=== PATIENT | female | born 1935 | race Caucasian/White ===

== ENCOUNTER → 2018-03-04 | Outpatient (CLI) | payer MEDICARE ==
--- NOTE | 2018-03-04 16:46 | US ---
EXAMINATION TYPE: US kidneys/renal and bladder DATE OF EXAM: 03/04/2018 COMPARISON: NONE CLINICAL HISTORY: 82-year-old female R31.1 HEMATURIA. Microscopic hematuria, UTI TECHNIQUE: Multiple sonographic images of the kidneys and bladder are obtained. FINDINGS: EXAM MEASUREMENTS: Right Kidney: 10.2 x 3.9 x 4.3 cm Left Kidney: 10.8 x 4.8 x 4.3 cm No hydronephrosis on either side. No gross abnormality of the bladder. Both ureteral jets are seen. Post Void Residual Volume: 13.7 mL IMPRESSION: 1. No hydronephrosis. 2. Residual bladder volume after voiding (14 mL) falls within acceptable limits.
== END ==
LOC: RADUSWWP 14:59
PROVIDERS: ATTEND Internal Medicine
DX: R31.1 Benign essential microscopic hematuria (principal)
CPT/HCPCS: 76770

== ENCOUNTER → 2019-01-27 | Outpatient (CLI) | payer MEDICARE ==
[2019-01-27 13:32] LABS: HCT 40.4 % (34.0-46.0); HGB 13.7 gm/dL (11.4-16.0); MCH 32.3 pg (25.0-35.0); MCHC 33.9 g/dL (31.0-37.0); MCV 95.3 fL (80.0-100.0); Mean Platelet Volume 8.2; Platelet Count 233 k/uL (150-450); RBC 4.24 m/uL (3.80-5.40); RDW 13.5 % (11.5-15.5); WBC 7.5 k/uL (3.8-10.6)
[2019-01-27 13:45] LABS: Potassium 4.1 mmol/L (3.5-5.1)
== END ==
LOC: LABPAT 12:20
PROVIDERS: ATTEND Internal Medicine Clinical Cardiac Electrophysiology
DX: Z01.812 Encounter for preprocedural laboratory examination (principal); I45.2 Bifascicular block; E78.5 Hyperlipidemia, unspecified; R00.1 Bradycardia, unspecified
CPT/HCPCS: 36415; 80051; 82565; 82947; 84520; 85027

== ENCOUNTER 2019-02-04 08:32 | Day surgery (SDC) | payer MEDICARE ==
[~2019-02-04 08:32] MED LIST: ceFAZolin 1,000 MG in SODIUM CHLORIDE 0.9% IRRIGATIO 250 ML IRRIGATION ONE; ceFAZolin IN SWFI 2 GM/20 ML SYRINGE IVP ONE
[2019-02-04] MEDS ORDERED: SODIUM CHLORIDE 0.9% 1,000 ML IV ONE (09:27)
[2019-02-04] MEDS ORDERED: PROPOFOL 10 MG/ML 20 ML VIAL IV ONE (10:41)
[2019-02-04] MEDS ORDERED: fentaNYL (PF) 50 MCG/ML 2 ML AMP ONE (10:41)
[2019-02-04] MEDS ORDERED: MIDAZOLAM 2 MG/2 ML VIAL ONE (10:41)
[2019-02-04] MEDS ORDERED: LIDOCAINE 1% INJ 10MG/ML (20 ML MDV) ONE ×2 (10:59→11:22)
[2019-02-04] MEDS ORDERED: LIDOCAINE 1% INJ 10MG/ML (20 ML MDV) SQ ONE ×2 (11:13)
[2019-02-04] MEDS ORDERED: ACETAMINOPHEN TAB 325 MG TAB PO PRN (12:50)
[2019-02-04] MEDS ORDERED: ACETAMINOPHEN IV (For NPO) 1,000 MG in EMPTY BAG 1 BAG IVPB ONE (12:50)
[2019-02-04] MEDS: HYDROcodone/APAP 5-325MG 1 EACH TAB PO PRN (15:17)
[2019-02-04] MEDS: amLODIPine 2.5 MG TAB PO SCH (15:17)
[2019-02-04] MEDS: LACTATED RINGERS 1,000 ML IV SCH (15:19)
[2019-02-04] MEDS: SODIUM CHLORIDE 0.9% 1,000 ML IV SCH (15:20)
[2019-02-04 15:31] VITALS: BMI 24.8
[2019-02-04 15:54] LABS: Cholesterol 130 mg/dL (<200); HDL Cholesterol 65 mg/dL (40-60); LDL Cholesterol,Calculated 52 mg/dL (0-99); Triglycerides 67 mg/dL (<150)
[2019-02-04] MEDS: ceFAZolin IN SWFI 2 GM/20 ML SYRINGE IVP SCH ×2 (16:29→22:58)
--- NOTE | 2019-02-04 18:20 | LTR ---
DATE OF SERVICE: 02/04/2019 Dear Miesha: I had the pleasure of seeing Trini Longoria in electrophysiology followup. As you know, Trini, has episodes of dizzy spells and a prolonged QT interval at baseline. 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 She underwent permanent pacing with his bundle pacing in an effort to reduce or minimize RV pacing, which generally can precipitate heart failure and development of an early onset of atrial fibrillation. Therefore, she was brought in. She underwent successful implantation of this pacemaker and is doing well. She will continue to follow up with you and myself as before. Thank you for entrusting me in the care of your patient. Warm regards, Sincerely, DIOMEDES / ELISABETH: [id number] /
--- NOTE | 2019-02-04 18:20 | PCN ---
PROCEDURE NOTE HISTORY: 83-year-old female with a history of recurrent dizzy spells and documented AV block spontaneous without any triggering factors. She was brought in initially we had planned a loop monitor implantation, but this was canceled and she was brought in directly for permanent pacemaker implantation. However, she has a prolonged QT interval at baseline and also has advanced AV block intermittently and the likelihood of high RV pacing percentage close to 100% resulted in the recommendation for biventricular pacing to avoid RV pacing and avoid heart failure symptoms in the future. DESCRIPTION OF PROCEDURE: The patient is brought to the EP lab in a fasting state. Written informed consent was obtained prior to the procedure. The left shoulder area was prepped and draped as per protocol. 1% lidocaine was used for local anesthesia. A 4 cm incision was made parallel to the deltopectoral groove, about 1.5 cm medial to it. The incision was carried down to the level of the pectoralis muscle. A subfascial pocket was made. Hemostasis was assured. The left axillary vein was accessed at 3 separate points under fluoroscopy and via appropriately-sized introducer sheaths 3 leads were positioned. The atrial lead was a 53 cm tined lead, model #4574, serial number [id number]. The P waves were 3.8 mV. Pacing impedance of 737 ohms, pacing threshold of 0.3 V at 0.5 milliseconds. 10 V test negative. The RV lead was a aneta lead 58 cm in length and model #4074 Medtronic lead, serial number [id number]. This was positioned in the low RV septum/RV apex. R-waves 18.8 mV, pacing impedance 1695 ohms, pacing threshold 0.3 V at 0.5 milliseconds. 10 V test negative. The third lead was Medtronic model #3830, 69 cm in length and serial number [id number]. This was screwed in the His bundle area. Selective His bundle capture was obtained with loss of selective capture at 0.7 V at 1 millisecond. All leads secured to the underlying pectoralis fascia using 2 nonabsorbable sutures. Pocket was irrigated with antibiotic solution. Leads were connected to the generator (Medtronic Madiha [employer] model number W1TR02 serial number [id number]. Leads and generator were then placed in subfascial pocket. The wound was closed in 3 layers and dressed per protocol. RESULTS: Successful biventricular pacemaker implantation to avoid RV pacing in this elderly lady with an abnormal AV node function with intermittent advanced AV block, but baseline PA prolongation. The device was then programmed to DDD mode with a AV delay of 150 milliseconds and a RV offset of 50 milliseconds. Selective pacing was noted. The patient tolerated the procedure well without any acute complications. MMODL / IJN: [id number] /
[2019-02-05] MEDS: LACTATED RINGERS 1,000 ML IV SCH (04:36)
[2019-02-05] MEDS: SODIUM CHLORIDE 0.9% 1,000 ML IV SCH (04:36)
[2019-02-05] MEDS: ceFAZolin IN SWFI 2 GM/20 ML SYRINGE IVP SCH ×2 (05:23→10:37)
--- NOTE | 2019-02-05 07:42 | P.DS ---
Providers Attending physician: Henry Abad Primary care physician: Miesha [facility] Course: Patient is resting comfortably in bed. Yesterday blood pressure is quite elevated he started amlodipine 2.5 mg by mouth daily No chest discomfort no shortness of breath no dizziness lightheadedness Blood pressure 132/76. 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 with a baseline prolonged duration of SD interval as well as intermittent 2-1 AV block and advanced A-V block Status post biventricular pacing Anticipated RV pacing is high and therefore biventricular pacing was performed with physiologic septal pacing Hypertension Twelve-lead ECG today today shows sinus mechanism with His bundle pacing with a narrow QRS, selective His bundle pacing Suggest Continue amlodipine 2.5 mg by mouth daily Pacemaker interrogation IV antibiotics and chest x-ray If these are within normal limits she will go home today in follow-up in the device clinic within 7 days and follow-up with me in about 3-4 months Patient Condition at Discharge: Stable Plan - Discharge Summary Discharge Rx Participant: No New Discharge Prescriptions: Continue Vit A/Vit C/Vit E/Zinc/Copper [ICAPS SOFTGEL] 1 cap PO DAILY Cetirizine HCl [Zyrtec] 10 mg PO DAILY Atorvastatin [Lipitor] 40 mg PO DAILY Vitamin B Complex 1 each PO DAILY Tumeric 1 tab PO DAILY Oxybutynin Chloride [Ditropan] 5 mg PO DAILY Calcium Carbonate [Calcium] 600 mg PO DAILY Aspirin [Adult Low Dose Aspirin EC] 81 mg PO DAILY Ascorbic Acid [Vitamin C] 1,000 mg PO DAILY Discharge Medication List Ascorbic Acid [Vitamin C] 1,000 mg PO DAILY 01/30/19 [History] Aspirin [Adult Low Dose Aspirin EC] 81 mg PO DAILY 01/30/19 [History] Atorvastatin [Lipitor] 40 mg PO DAILY 01/30/19 [History] Calcium Carbonate [Calcium] 600 mg PO DAILY 01/30/19 [History] Cetirizine HCl [Zyrtec] 10 mg PO DAILY 01/30/19 [History] Oxybutynin Chloride [Ditropan] 5 mg PO DAILY 01/30/19 [History] Tumeric 1 tab PO DAILY 01/30/19 [History] Vit A/Vit C/Vit E/Zinc/Copper [ICAPS SOFTGEL] 1 cap PO DAILY 01/30/19 [History] Vitamin B Complex 1 each PO DAILY 01/30/19 [History] Follow up Appointment(s)/Referral(s): Henry Abad MD [STAFF PHYSICIAN] - 1 Week (Device follow-up within week Follow-up with Dr. Knox in 3-4 months) Activity/Diet/Wound Care/Special Instructions: PATIENT EDUCATION MATERIAL Instructions following a heart rhythm device implant. 1. Keep dressing DRY for 5 DAYS. You may cover the area with Saran or Cling Wrap, prior to a shower. 2. The dressing will be removed in the Device Clinic at [facility]. Absorbable sutures were used to close the wound. 3. Avoid raising the left arm above the shoulder level. 4 week restriction 4. Avoid arm movements, like backscratching, rubbing the head, or pulling on a cord. 4 weeks restriction 5. Gentle range of motion movements of the shoulder, closest to the incision should be performed to avoid a frozen shoulder. (Pendulum exercises of the shoulder) 6. The opposite arm may be used freely. 7. Avoid driving for 7 days. 8. Avoid activities such as golfing, swimming, weed whacking, lifting more than 10 pounds weight, bowling, gymnastics and weight training/lifting. (6 weeks restriction) 9. Activities such as wood chopping with an axe, pull-ups in the gymnasium, power lifting, arc-welding, being close to home induction cooktops will always be a problem. 10. Arm sling is only a reminder not to raise the arm above the head. You do not need to keep the arm completely immobilized. Your free to move the arm and use it and for normal activities. In case of any problems, please call [facility], Brian Polo, @ [phone], Attention: Device Clinic Device clinic follow-up in 7 days Follow-up with primary rod mill tender Dr. Knox in 2-3 months Discharge Disposition: HOME SELF-CARE
[2019-02-05] MEDS: HYDROcodone/APAP 5-325MG 1 EACH TAB PO PRN (08:14)
[2019-02-05] MEDS: amLODIPine 2.5 MG TAB PO SCH (08:14)
[2019-02-05] MEDS ORDERED: ATORVASTATIN 40 MG TAB PO SCH (09:00)
[2019-02-05] MEDS ORDERED: ASPIRIN 81 MG PO SCH (09:00)
[2019-02-05 09:08] VITALS: BP 121/60; PULSE 66; RESP 18; TEMP 98.7
--- NOTE | 2019-02-05 09:16 | XR ---
EXAMINATION TYPE: XR chest 2V DATE OF EXAM: 02/05/2019 COMPARISON: NONE HISTORY: Lead placement check TECHNIQUE: Frontal and lateral views of the chest are obtained. FINDINGS: There is a generator in the left pectoral region, there are leads in the right atrium and ventricle. No evident pneumothorax or pleural effusion. Patient is rotated. Heart size likely within normal limits. There is a tortuous dense and ectatic thoracic aorta. Surgical clips present in the up per abdomen. IMPRESSION: No evident complication status post lead placement.
== END 2019-02-05 13:00 | disposition home or self-care (01) ==
LOC: CATHEP 08:32 → 1SOBS 13:10 → CATHEP 02-05 13:00
PROVIDERS: ATTEND Internal Medicine Clinical Cardiac Electrophysiology
DX: I44.1 Atrioventricular block, second degree (principal); I10 Essential (primary) hypertension; I45.10 Unspecified right bundle-branch block; Z87.891 Personal history of nicotine dependence; Z79.82 Long term (current) use of aspirin; Z79.899 Other long term (current) drug therapy
CPT/HCPCS: 33225; 33208; 80061; 71046; C1769 ×2; C1898 ×2; C2621; J2250; J0690 ×3; J2001; J3010; J2704

== ENCOUNTER 2019-09-26 18:24 | Emergency (ER) | payer MEDICARE ==
[2019-09-26 18:32] VITALS: RESP 16; TEMP 98
[2019-09-26] MEDS ORDERED: KETOROLAC 60 MG/2 ML VIAL IM STA (18:44)
--- NOTE | 2019-09-26 19:01 | ED ---
General Adult HPI - General Chief complaint: Extremity Problem,Nontraumatic Stated complaint: Hip Pain Source: patient, RN notes reviewed, old records reviewed Mode of arrival: ambulatory Limitations: no limitations - History of Present Illness Initial comments: This is an 84-year-old female presents emergency Department complaining of bilateral hip pain. She states on Sunday she did a little karthik chi exercises and on Sunday she became stiff in the hips and in particular when standing both of her hips and a little bit into the buttocks bilaterally is painful. Patient denies any numbness or weakness. Patient denies any urinary incontinence or urinary retention. Patient denies any direct trauma or blunt trauma. Patient denies any back pain which she does state there is a little pain in both buttocks is still lateral aspect of the buttocks. Patient states palpating the lateral hip is slightly tender. - Related Data Home Medications Medication Instructions Recorded Confirmed Ascorbic Acid [Vitamin C] 1,000 mg PO DAILY 01/30/19 02/04/19 Aspirin [Adult Low Dose Aspirin EC] 81 mg PO DAILY 01/30/19 02/04/19 Atorvastatin [Lipitor] 40 mg PO DAILY 01/30/19 02/04/19 Calcium Carbonate [Calcium] 600 mg PO DAILY 01/30/19 02/04/19 Cetirizine HCl [Zyrtec] 10 mg PO DAILY 01/30/19 02/04/19 Oxybutynin Chloride [Ditropan] 5 mg PO DAILY 01/30/19 02/04/19 Tumeric 1 tab PO DAILY 01/30/19 Vit A/Vit C/Vit E/Zinc/Copper 1 cap PO DAILY 01/30/19 02/04/19 [ICAPS SOFTGEL] Vitamin B Complex 1 each PO DAILY 01/30/19 02/04/19 Allergies Allergy/AdvReac Type Severity Reaction Status Date / Time Sulfa (Sulfonamide Allergy Unknown Verified 09/26/19 18:31 Antibiotics) Childhood Review of Systems ROS Statement: Those systems with pertinent positive or pertinent negative responses have been documented in the HPI. ROS Other: All systems not noted in ROS Statement are negative. Past Medical History Past Medical History: Heart Failure History of Any Multi-Drug Resistant Organisms: None Reported Past Surgical History: Pacemaker Past Psychological History: No Psychological Hx Reported Smoking Status: Never smoker Past Alcohol Use History: Occasional Past Drug Use History: None Reported General Exam - General Exam Comments Initial Comments: GENERAL: Patient is well-developed and well-nourished. Patient is nontoxic and well- hydrated and is in mild distress. ENT: Neck is soft and supple. No significant lymphadenopathy is noted. Oropharynx is clear. Moist mucous membranes. Neck has full range of motion without eliciting any pain. EYES: The sclera were anicteric and conjunctiva were pink and moist. Extraocular movements were intact and pupils were equal round and reactive to light. Eyelids were unremarkable. PULMONARY: Unlabored respirations. Good breath sounds bilaterally. No audible rales rhonchi or wheezing was noted. CARDIOVASCULAR: There is a regular rate and rhythm without any murmurs gallops or rubs. ABDOMEN: Soft and nontender with normal bowel sounds. No palpable organomegaly was noted. There is no palpable pulsatile mass. SKIN: Skin is clear with no lesions or rashes and otherwise unremarkable. NEUROLOGIC: Patient is alert and oriented x3. Cranial nerves II through XII are grossly intact. Motor and sensory are also intact. Normal speech, volume and content. Symmetrical smile. MUSCULOSKELETAL: Normal extremities with adequate strength and full range of motion. She has been mild tenderness to lateral palpation PATIENT is full range of motion of her hip and knee but it does cause her some pain when she tries to tufting creeler the lateral hip and lateral buttocks laterally. LYMPHATICS: No significant lymphadenopathy is noted PSYCHIATRIC: Normal psychiatric evaluation. Limitations: no limitations Course Vital Signs 09/26/19 18:27 Temperature 98.0 F Pulse Rate 72 Respiratory 16 Rate Blood Pressure 165/89 O2 Sat by Pulse 97 Oximetry Medical Decision Making - Medical Decision Making X-ray of the sacrum and hip show no acute abnormality. Toradol did seem to improve the patient's symptoms. Patient will follow-up the primary medical care doctor. Disposition Clinical Impression: Trochanteric bursitis Disposition: ADMITTED IP TO THIS [facility] Instructions (If sedation given, give patient instructions): Hip Bursitis (ED) Additional Instructions: Patient should take Aleve twice a day. Is patient prescribed a controlled substance at d/c from ED?: No Referrals: Miesha Martinez MD [Primary Care Provider] - 1-2 days
--- NOTE | 2019-09-26 19:13 | XR ---
EXAMINATION TYPE: XR pelvis AP view DATE OF EXAM: 09/26/2019 COMPARISON: NONE HISTORY: Hip pain TECHNIQUE: 2 views FINDINGS: Pelvic ring is intact. Proximal femurs are intact. Sacroiliac joints appear intact. There i s no evidence of a fracture. There is no sign of hip dysplasia. Proximal femurs are intact. IMPRESSION: Negative pelvis x-ray exam.
--- NOTE | 2019-09-26 19:16 | XR ---
EXAMINATION TYPE: XR sacrum coccyx DATE OF EXAM: 09/26/2019 COMPARISON: NONE HISTORY: Hip pain TECHNIQUE: 3 views FINDINGS: Sacroiliac joints appear intact. I see no fracture nor dislocation. Sacral segments have no rmal alignment. IMPRESSION: Negative sacrum and coccyx exam. No fracture seen.
[2019-09-26 20:22] VITALS: BP 158/78; PULSE 71
== END 2019-09-26 20:20 | disposition other institution (70) ==
LOC: EC 18:24
DX: M70.62 Trochanteric bursitis, left hip (principal); M70.61 Trochanteric bursitis, right hip; I50.9 Heart failure, unspecified; Z79.82 Long term (current) use of aspirin; Z79.899 Other long term (current) drug therapy; Z88.2 Allergy status to sulfonamides; Z95.0 Presence of cardiac pacemaker
CPT/HCPCS: 72170; 72220; 99284; 96372; J1885